=== PATIENT | male | born 1990 | race Caucasian/White ===

== ENCOUNTER 2019-08-28 10:57 | Emergency (ER) | payer OTHER ==
[2019-08-28 11:05] VITALS: RESP 18
[2019-08-28 11:52] LABS: Appearance,Urine Clear (Clear); Bilirubin,Urine Negative (Negative); Blood,Urine Negative (Negative); Color,Urine Yellow; Glucose,Urine (UA) Negative (Negative); Ketones,Urine Negative (Negative); Leukocyte Esterase,Urine Negative (Negative); Nitrite,Urine Negative (Negative); PH, Urine 6.5 (5.0-8.0); Protein,Urine Negative (Negative); Specific Gravity,Urine 1.017 (1.001-1.035); Urobilinogen,Urine <2.0 mg/dL (<2.0)
[2019-08-28] MEDS ORDERED: CYCLOBENZAPRINE 10MG STARTER 3 TAB BTL PO STA (12:21)
--- NOTE | 2019-08-28 12:23 | ED ---
Abdominal Pain HPI - General Chief Complaint: Abdominal Pain Stated Complaint: Abdominal pain Time Seen by Provider: 08/28/19 11:14 Source: patient, RN notes reviewed, old records reviewed Mode of arrival: ambulatory Limitations: no limitations - History of Present Illness Initial Comments: 29 year old male, presents with left abdominal pain, worse with movement. Symptoms started at work last week. PAtient reports that he has a job requiring heavy lifting. Patient reports that he has no changes in bowel habits, vomiting, fever, or changes in urination. Denies radiation to back. PAtient was seen at [facility], and reports they were more concerned about patient BP. He was started on BP medication, but had no further eval for abdomianl pain. He reports he had blood work then that was normal. - Related Data Previous Rx's Medication Instructions Recorded Cyclobenzaprine [Flexeril] 10 mg PO TID #12 tab 08/28/19 Ibuprofen [Motrin] 600 mg PO Q6HR PRN #20 tab 08/28/19 Allergies Allergy/AdvReac Type Severity Reaction Status Date / Time No Known Allergies Allergy Verified 08/28/19 11:03 Review of Systems ROS Statement: Those systems with pertinent positive or pertinent negative responses have been documented in the HPI. ROS Other: All systems not noted in ROS Statement are negative. Past Medical History Past Medical History: Hypertension History of Any Multi-Drug Resistant Organisms: None Reported Past Surgical History: No Surgical Hx Reported Past Psychological History: No Psychological Hx Reported Smoking Status: Current every day smoker Past Alcohol Use History: None Reported Past Drug Use History: None Reported General Exam - General Exam Comments Initial Comments: 29 year old male, no distress. Limitations: no limitations General appearance: alert, in no apparent distress Head exam: Present: atraumatic, normocephalic, normal inspection Eye exam: Present: normal appearance, PERRL, EOMI. Absent: scleral icterus, conjunctival injection, periorbital swelling ENT exam: Present: normal exam, mucous membranes moist Neck exam: Present: normal inspection. Absent: tenderness, meningismus, lymphadenopathy Respiratory exam: Present: normal lung sounds bilaterally. Absent: respiratory distress, wheezes, rales, rhonchi, stridor GI/Abdominal exam: Present: soft, normal bowel sounds, other (patient has t enderness over left rectus abdominus muscle. positive carnet sign). Absent: distended, tenderness, guarding, rebound, rigid Back exam: Present: normal inspection Neurological exam: Present: alert, oriented X3, CN II-XII intact Psychiatric exam: Present: normal affect, normal mood Skin exam: Present: warm, dry, intact, normal color. Absent: rash Course Vital Signs 08/28/19 08/28/19 11:03 12:46 Temperature 98 F 97.9 F Pulse Rate 75 83 Respiratory 18 18 Rate Blood Pressure 153/90 156/80 O2 Sat by Pulse 96 99 Oximetry Medical Decision Making - Medical Decision Making 29 year old male with abdominal wall pain with movement after heavy lifting at work. No changes in bowel habits or vomiting. Patient has no palpable bulge at this time. Discussed patient has positive Carnet sign. Discussed UA is normal. Discussed patient pain is related to muscle tear or possible spigelian hernia. Discussed surgery follow up and limit lifting. Discussed return parameters and PCP follow up. - Lab Data Lab Results 08/28/19 Range/Units 11:20 Urine Color Yellow Urine Appearance Clear (Clear) Urine pH 6.5 (5.0-8.0) Ur Specific Kelly 1.017 (1.001-1.035) Urine Protein Negative (Negative) Urine Glucose (UA) Negative (Negative) Urine Ketones Negative (Negative) Urine Blood Negative (Negative) Urine Nitrite Negative (Negative) Urine Bilirubin Negative (Negative) Urine Urobilinogen <2.0 (<2.0) mg/dL Ur Leukocyte Esterase Negative (Negative) Disposition Clinical Impression: Abdominal muscle pain Disposition: HOME SELF-CARE Condition: Good Instructions (If sedation given, give patient instructions): Ventral Hernia (ED) Additional Instructions: Patient has avoid any heavy lifting or straining. Take anti-inflammatory medicine and muscle relaxer for pain. Advised close follow-up with primary care doctor and surgeon. Prescriptions: Cyclobenzaprine [Flexeril] 10 mg PO TID #12 tab Ibuprofen [Motrin] 600 mg PO Q6HR PRN #20 tab PRN Reason: Pain Is patient prescribed a controlled substance at d/c from ED?: No Referrals: None,Stated [Primary Care Provider] - 1-2 days Misael Bassett MD [STAFF PHYSICIAN] - 1-2 days Time of Disposition: 12:22
[2019-08-28 12:47] VITALS: BP 156/80; PULSE 83; TEMP 97.9
== END 2019-08-28 12:47 | disposition home or self-care (01) ==
LOC: EC 10:57
DX: M79.18 Myalgia, other site (principal); I10 Essential (primary) hypertension; F17.200 Nicotine dependence, unspecified, uncomplicated; Z79.899 Other long term (current) drug therapy; X50.0XXA Overexertion from strenuous movement or load, initial encounter; Y92.69 Other specified industrial and construction area as the place of occurrence of the external cause
CPT/HCPCS: 81003; 99284